=== PATIENT | female | born 1970 | race Hispanic/Latino ===

== ENCOUNTER 2018-09-07 21:05 | Emergency (ER) | payer BC ==
[~2018-09-07] VITALS: Ht 160 cm; Wt 81.2 kg
[2018-09-07] MEDS ORDERED: METHYLPREDNISOLONE SOD SUCC 125 MG/2ML VIAL IM ONE ×2 (21:30)
--- NOTE | 2018-09-07 21:51 | Diagnostic Imaging Report ---
EXAMINATION: CHEST 2 VIEWS INDICATION: Cough. COMPARISON: None FINDINGS: TUBES and LINES: None. LUNGS: Mild patchy density in the lung bases, left greater than right suggestive of atelectasis; cannot exclude pneumonia in the proper clinical setting. PLEURA: No pleural effusion or pneumothorax. HEART AND MEDIASTINUM: The cardiomediastinal silhouette is unremarkable. BONES AND SOFT TISSUES: No acute osseous lesion. UPPER ABDOMEN: No free air under the diaphragm. IMPRESSION: Mild patchy density in the lung bases, left greater than right suggestive of atelectasis; cannot exclude pneumonia in the proper clinical setting. Signed by: Dr. Monty Pinto M.D. on 09/07/2018 9:47 PM
[2018-09-07 22:14] VITALS: BP 114/70
== END 2018-09-07 22:20 | disposition home or self-care (01) ==
LOC: ER 21:05
DX: R05 Cough (principal); J20.9 Acute bronchitis, unspecified
CPT/HCPCS: 71046; 99283; J2930

== ENCOUNTER 2025-04-16 08:08 | Emergency (ER) | payer OTHER ==
[~2025-04-16] VITALS: Ht 160 cm; Wt 85.7 kg
[~2025-04-16 08:08] MED LIST: ONDANSETRON ODT4 MG PO
[2025-04-16] MEDS ORDERED: ULTRAM 50MG50 MG PO (08:46)
[2025-04-16] MEDS ORDERED: AMOX TR-K CLV1 EAC2 PO (08:48)
[2025-04-16] MEDS: Morphine 4mg INJECTION 4 MG/ML INJ IM STA (09:08)
[2025-04-16] MEDS: BUPIVACAINE HCL 0.25% 10ML MPF VIAL INJ ONE (09:11)
[2025-04-16 09:46] VITALS: PULSE 87; RESP 18; TEMP 98
[2025-04-16 09:49] VITALS: BP 131/65; PULSE 87; RESP 18; O2SAT 100
== END 2025-04-16 09:25 | disposition home or self-care (01) ==
LOC: ER 08:11
DX: K08.89 Other specified disorders of teeth and supporting structures (principal)
CPT/HCPCS: 99283; J2270